=== PATIENT | female | born 1970 | race African-American/Black ===

== ENCOUNTER 2017-02-21 05:28 | Inpatient (IN) | payer BC ==
[~2017-02-21] VITALS: Ht 162.6 cm; Wt 88.5 kg
[2017-02-21] MEDS ORDERED: LACTATED RINGERS 1,000 ML IV SCH (06:00)
[2017-02-21 06:39] LABS: CLARITY URINE CLEAR (CLEAR); COLOR URINE YELLOW (YELLOW); GLUCOSE URINE NEGATIVE (NEGATIVE); KETONES URINE TRACE (NEGATIVE); LEUKOCYTE ESTERASE URINE 1+ (NEGATIVE); NITRITE URINE NEGATIVE (NEGATIVE); OCCULT BLOOD URINE NEGATIVE (NEGATIVE); PH URINE 5.5 (4.5-8.0); PROTEIN URINE NEGATIVE (NEGATIVE); SPECIFIC GRAVITY URINE 1.026 (1.005-1.030); UROBILINOGEN URINE 0.2 E.U./dL (0.2-1.0)
[2017-02-21 06:48] LABS: CARBON DIOXIDE 23 mEq/L (21-32); CHLORIDE 107 mEq/L (98-107)
[2017-02-21 06:50] LABS: UCG SCREEN NEGATIVE
[2017-02-21] MEDS ORDERED: MIDAZOLAM HCL 2 MG/2 ML VIAL ONE (07:50)
[2017-02-21] MEDS ORDERED: LIDOCAINE HCL 1% 20ML VIAL (Pyxis) INJ ONE (07:51)
[2017-02-21] MEDS ORDERED: ROCURONIUM BROMIDE 10MG/ML VIAL 5ML IV ONE (07:51)
[2017-02-21] MEDS ORDERED: FENTANYL CITRATE/PF 50MCG/ML 2ML VIAL ONE ×2 (07:51→08:22)
[2017-02-21] MEDS ORDERED: PROPOFOL 200MG/20ML VIAL IV ONE (07:51)
[2017-02-21] MEDS ORDERED: DEXAMETHASONE 4MG/ML 1ML VIAL ONE (08:10)
[2017-02-21] MEDS ORDERED: ONDANSETRON HCL 4MG/2ML VIAL ONE (08:10)
[2017-02-21] MEDS ORDERED: METOCLOPRAMIDE HCL 10MG/2ML VIAL ONE (08:10)
[2017-02-21] MEDS ORDERED: CEFAZOLIN SODIUM 1000MG/VIAL ONE (08:13)
[2017-02-21] MEDS ORDERED: VASOPRESSIN 20 UNIT/ML 1ML ONE (08:30)
[2017-02-21] MEDS ORDERED: SODIUM CHLORIDE 0.9% 1,000 ML IV SCH (08:55)
[2017-02-21] MEDS ORDERED: MEPERIDINE HCL/PF 25MG/ML CPJ IV PRN (09:00)
[2017-02-21] MEDS ORDERED: ONDANSETRON HCL 4MG/2ML VIAL IV PRN (09:00)
[2017-02-21] MEDS ORDERED: HYDROMORPHONE HCL/PF 2MG/ML CPJ IV PRN (09:00)
[2017-02-21] MEDS ORDERED: KETOROLAC 30MG/ML VIAL ONE (09:12)
[2017-02-21] MEDS ORDERED: GLYCOPYRROLATE 0.2 MG/ML 2ML VIAL ONE (09:14)
[2017-02-21] MEDS ORDERED: NEOSTIGMINE METHYLSULFATE 1MG/ML 10 ML VIAL ONE (09:14)
[2017-02-21] MEDS ORDERED: ONDANSETRON INJ IV PRN (09:45)
[2017-02-21] MEDS ORDERED: NALOXONE INJ IV PRN (09:45)
[2017-02-21] MEDS ORDERED: HYDROMORPHONE PCA 10MG/50ML IV PRN (09:45)
[2017-02-21] MEDS ORDERED: HYDROCODONE/ACETAMINOPHEN 5/325MG TABLET PO PRN (09:45)
[2017-02-21] MEDS ORDERED: FERR-63 PO (10:12)
[2017-02-21] MEDS ORDERED: CHOL20004 PO (10:12)
[2017-02-21 12:20] VITALS: BP 109/79
[2017-02-21 16:00] VITALS: BP 125/78
[2017-02-21 20:00] VITALS: BP 137/83
[2017-02-22] VITALS: BP 142/79
[2017-02-22 04:00] VITALS: BP 130/70
[2017-02-22 07:01] LABS: BASOPHILS % 0.3 % (0.0-2.0); EOSINOPHILS % 0.1 % (0.0-5.0); HEMATOCRIT. 33.9 % (36.0-48.0); LYMPHOCYTES % 12.2 % (20.0-50.0); MEAN CORPUSCULAR HEMOGLOBIN 26.8 pg (28.0-32.0); MEAN CORPUSCULAR VOLUME 82.4 fL (81.0-99.0); MONOCYTES % 8.5 % (2.0-8.0); NEUTROPHILS % 78.9 % (40.0-76.0); PLATELET 176 x1000/uL (130-400); RED BLOOD CELL COUNT 4.12 mill/uL (4.2-5.4); RED CELL DISTRIBUTION WIDTH 15.4 % (11.6-14.6)
[2017-02-22 08:00] VITALS: BP 133/87
[2017-02-22 12:00] VITALS: BP 130/60
[2017-02-22] MEDS ORDERED: MAGNESIUM HYDROXIDE 400MG/5ML 30ML UDC PO PRN (15:30)
[2017-02-22 16:00] VITALS: BP 124/77
[2017-02-22] MEDS ORDERED: PSYLLIUM SEED PACKET PO NR (16:00)
[2017-02-22 20:00] VITALS: BP 130/74
[2017-02-22] MEDS ORDERED: POTASSIUM CHLORIDE 20MEQ TABLET SR PO NR (20:00)
[2017-02-22] MEDS: IBUPROFEN 800MG TABLET PO PRN (20:49)
[2017-02-23] VITALS: BP 119/74
[2017-02-23] MEDS ORDERED: POTASSIUM CHLORIDE 20MEQ TABLET SR PO NR
[2017-02-23 04:00] VITALS: BP 130/87
[2017-02-23 08:00] VITALS: BP 131/87
[2017-02-23] MEDS: IBUPROFEN 800MG TABLET PO PRN (08:48)
[2017-02-23 12:00] VITALS: BP 130/86
[2017-02-23 14:49] VITALS: BP 130/86
== END 2017-02-23 15:50 | disposition home or self-care (01) | DRG 743 ==
LOC: OR 05:28 → 6EST 05:29
PROVIDERS: ADMIT Obstetrics & Gynecology Obstetrics; ATTEND Obstetrics & Gynecology Obstetrics
PROC: 0UTC0ZZ Resection of Cervix, Open Approach (ICD-10-PCS; 2017-02-21)
PROC: 0UT70ZZ Resection of Bilateral Fallopian Tubes, Open Approach (ICD-10-PCS; 2017-02-21)
PROC: 0UT90ZZ Resection of Uterus, Open Approach (ICD-10-PCS; principal; 2017-02-21 07:30)
DX: D25.9 Leiomyoma of uterus, unspecified (principal); Z83.3 Family history of diabetes mellitus; Z80.9 Family history of malignant neoplasm, unspecified; Z82.49 Family history of ischemic heart disease and other diseases of the circulatory system
CPT/HCPCS: 36415; 80048; 81001; 81025; 84132; 85025; 86850; 86900; 88307; J0690; J1100; J1170; J1885; J2250; J2405; J2704; J2710; J2765; J3010; J3490; J7030; J7120